=== PATIENT | male | born 1995 | race Caucasian/White ===

== ENCOUNTER 2018-06-27 18:23 | Emergency (ER) | payer BC ==
[2018-06-27 18:36] VITALS: BP 141/78
[2018-06-27] MEDS ORDERED: Ibuprofen TAB* 400 MG PO ONE (18:48)
--- NOTE | 2018-06-27 19:00 | UC ---
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 He states that he had been drinking last night was up on a ladder and missed the last step landing on his left foot. Since that point he has had discomfort in the anterior ankle without swelling. He is able to bear weight if he places his weight on his toes. He has more discomfort with normal gait. He denies any other injury and has not taken any medication for this. Only medical history is for inguinal hernia repair as a small child. - History of Current Complaint Chief Complaint: UCLowerExtremity Stated Complaint: L ANKLE INJURY Time Seen by Provider: 06/27/18 18:31 Hx Obtained From: Patient Pain Intensity: 8 - Allergies/Home Medications Allergies/Adverse Reactions: Allergies Allergy/AdvReac Type Severity Reaction Status Date / Time No Known Allergies Allergy Verified 06/27/18 18:37 Home Medications: Home Medications FLUoxetine* [Prozac*] 70 mg PO DAILY 06/27/18 [History Confirmed 06/27/18] PMH/Surg Hx/FS Hx/Imm Hx Previously Healthy: Yes - Surgical History Surgical History: Yes Surgery Procedure, Year, and Place: hernia sugery - Family History Known Family History: Negative: Diabetes, Blood Disorder - Social History Occupation: Student Alcohol Use: Weekly Substance Use Type: None Smoking Status (MU): Never Smoked Tobacco Review of Systems Constitutional: Negative Motor: Decreased ROM Neurovascular: Negative Musculoskeletal: Arthralgia, Decreased ROM All Other Systems Reviewed And Are Negative: Yes Physical Exam Triage Information Reviewed: Yes Appearance: Well-Appearing, No Pain Distress, Well-Nourished Vital Signs: Initial Vital Signs Temp 98.1 F 06/27/18 18:33 Pulse 90 06/27/18 18:33 Resp 15 06/27/18 18:33 BP 141/78 06/27/18 18:33 Pulse Ox 98 06/27/18 18:33 Neck: Positive: Supple Respiratory: Positive: Lungs clear Cardiovascular: Positive: RRR Musculoskeletal: Positive: Other: - Left ankle is tender anteriorly over the talus without any pain at the malleoli or anterior talofibular ligaments. Anterior and posterior drawer of the ankle is negative without laxity. No pain at the cuboid or fifth metatarsal. No proximal fibular tenderness. Antalgic gait, places weight on his forefoot Neurological: Positive: Alert Skin Exam: Normal Diagnostics - Radiology left ankle Xray Interpretation: No Acute Changes Radiology Interpretation Completed By: ED Physician - No osteochondral defect seen Lower Extremity Course/Dx - Course Course Of Treatment: Patient with fall one to 2 steps off ladder with direct axial load. No real tenderness at the calcaneus. Pain is more over the talus. X-rays look negative but no formal read is available. The patient was placed in a splint and on crutches and will be nonweightbearing to follow-up with orthopedist. Possibility of osteochondral injury/fracture. RICE plus NSAID. - Differential Dx/Diagnosis Differential Diagnosis/HQI/PQRI: Other - Calcaneal fracture, talar fracture, osteochondral defect, ankle sprain Provider Diagnoses: Left ankle pain. Left talus osteochondral injury Discharge - Sign-Out/Discharge Documenting (check all that apply): Patient Departure All imaging exams completed and their final reports reviewed: No - Discharge Plan Condition: Improved Disposition: HOME Prescriptions: Naproxen [Naproxen 500 mg tab] 500 mg PO BID PRN #10 tablet PRN Reason: Pain Patient Education Materials: Ankle Fracture (ED) Referrals: [facility] [Outside] Roque Rico MD [Medical Doctor] - Additional Instructions: Nonweightbearing. Ice the sore area. Call first thing in the morning to schedule appointment with orthopedic surgeon. Return if worse, new symptoms or other concerns. There is no definite fracture seen on her x-ray however there may be an injury to the cartilage surface of the ankle. - Billing Disposition and Condition Condition: IMPROVED Disposition: Home - Attestation Statements Document Initiated by Scribe: No
--- NOTE | 2018-06-27 19:28 | RAD ---
INDICATION: Medial ankle pain since falling off a ladder the previous night. COMPARISON: None. TECHNIQUE: 3 views of the left ankle were obtained. FINDINGS: The well corticated bones exhibit normal alignment. Joint spaces appear maintained. No fracture is seen. IMPRESSION: Normal ankle radiograph. If the patient's symptoms persist, follow-up imaging is recommended. R0
--- NOTE | 2018-06-28 09:14 | UC ---
Discharge - Sign-Out/Discharge Documenting (check all that apply): Post-Discharge Follow Up All imaging exams completed and their final reports reviewed: Yes - Discharge Plan Condition: Improved Disposition: HOME Prescriptions: Naproxen [Naproxen 500 mg tab] 500 mg PO BID PRN #10 tablet PRN Reason: Pain Patient Education Materials: Ankle Fracture (ED) Forms: *School Release Referrals: [facility] [Outside] Roque Rico MD [Medical Doctor] - Additional Instructions: Nonweightbearing. Ice the sore area. Call first thing in the morning to schedule appointment with orthopedic surgeon. Return if worse, new symptoms or other concerns. There is no definite fracture seen on her x-ray however there may be an injury to the cartilage surface of the ankle. - Billing Disposition and Condition Condition: IMPROVED Disposition: Home
== END 2018-06-27 19:55 | disposition home or self-care (01) ==
LOC: UCCORT 18:23
DX: M25.572 Pain in left ankle and joints of left foot (principal); S99.822A Other specified injuries of left foot, initial encounter; W11.XXXA Fall on and from ladder, initial encounter; Y93.89 Activity, other specified; Y92.9 Unspecified place or not applicable
CPT/HCPCS: 99203; A9270-GY; G0463

== ENCOUNTER 2018-12-05 08:23 | Emergency (ER) | payer BC ==
[2018-12-05 08:40] VITALS: BP 133/73
--- NOTE | 2018-12-05 09:18 | UC ---
Truncal Trauma HPI - HPI Summary HPI Summary: right posterior rib pain x 2 weeks injury playing hockey 2 week ago , was pushed against the wall and hit his right posterior ribs + pain with movement/ coughing and taking deep breaths no fever, no chills, no sob - History Of Current Complaint Chief Complaint: UCGeneralIllness Stated Complaint: RIGHT SIDED RIB INJURY Time Seen by Provider: 12/05/18 08:38 Hx Obtained From: Patient Onset/Duration: Sudden Onset, Lasting Weeks - 2, Still Present Onset Of Pain: Immediate Severity Initially: Severe Severity Currently: Severe Pain Intensity: 7 Pain Scale Used: 0-10 Numeric Mechanism Of Injury: Blunt Trauma Aggravating Factor(s): Movement, Deep Breathing, Cough Alleviating factor(s): Rest Associated Signs And Symptoms: Negative: SOB, Chest Pain, Cough, Hematuria, Abdominal Pain, Fever, Nausea, Vomiting - Allergies/Home Medications Allergies/Adverse Reactions: Allergies Allergy/AdvReac Type Severity Reaction Status Date / Time No Known Allergies Allergy Verified 12/05/18 08:33 Home Medications: Home Medications Ibuprofen TAB* [Advil TAB*] 200 mg PO Q6H PRN 12/05/18 [History Confirmed ] PMH/Surg Hx/FS Hx/Imm Hx Previously Healthy: Yes - Surgical History Surgical History: Yes Surgery Procedure, Year, and Place: hernia sugery - Family History Known Family History: Negative: Diabetes, Blood Disorder - Social History Alcohol Use: Weekly Substance Use Type: None Smoking Status (MU): Never Smoked Tobacco Review of Systems All Other Systems Reviewed And Are Negative: Yes Constitutional: Positive: Negative Skin: Positive: Negative Eyes: Positive: Negative ENT: Positive: Negative Respiratory: Positive: Negative Is Patient Immunocompromised?: No Physical Exam Triage Information Reviewed: Yes Appearance: Well-Appearing, No Pain Distress, Well-Nourished Vital Signs: Initial Vital Signs Temp 98.2 F 12/05/18 08:35 Pulse 69 12/05/18 08:35 Resp 16 12/05/18 08:35 BP 133/73 12/05/18 08:35 Pulse Ox 98 12/05/18 08:35 Eye Exam: Normal Eyes: Positive: Conjunctiva Clear ENT: Positive: Normal ENT inspection, Hearing grossly normal, Pharynx normal Neck: Positive: Supple, Nontender, No Lymphadenopathy Respiratory: Positive: Chest non-tender, Lungs clear, Normal breath sounds, No respiratory distress, Other: - tenderness right posterior lower ribs Cardiovascular: Positive: RRR, No Murmur, Pulses Normal Abdominal Exam: Normal Abdomen Description: Negative: CVA Tenderness (R), CVA Tenderness (L) Musculoskeletal Exam: Normal Musculoskeletal: Positive: Strength Intact, ROM Intact Diagnostics - Laboratory Diagnostic Studies Completed/Ordered: xray right ribs / chest : IMPRESSION: NONDISPLACED FRACTURE OF THE POSTERIOR ASPECT OF THE RIGHT 10TH RIB. NO APPRECIABLE. PNEUMOTHORAX. Truncal Trauma Course/Dx - Differential Dx/Diagnosis Provider Diagnosis: Fracture, rib Discharge - Sign-Out/Discharge Documenting (check all that apply): Patient Departure All imaging exams completed and their final reports reviewed: Yes - Discharge Plan Condition: Stable Disposition: HOME Patient Education Materials: Rib Fracture (ED) Referrals: No Primary Care Phys,NOPCP [Primary Care Provider] - 7 Days Additional Instructions: IMPRESSION: NONDISPLACED FRACTURE OF THE POSTERIOR ASPECT OF THE RIGHT 10TH RIB. NO APPRECIABLE PNEUMOTHORAX. - Billing Disposition and Condition Condition: STABLE Disposition: Home
== END 2018-12-05 09:11 | disposition home or self-care (01) ==
LOC: UCCORT 08:23
DX: S22.31XA Fracture of one rib, right side, initial encounter for closed fracture (principal); W22.01XA Walked into wall, initial encounter; Y92.9 Unspecified place or not applicable
CPT/HCPCS: 99211; G0463

== ENCOUNTER 2018-12-19 14:54 | Emergency (ER) | payer BC ==
[2018-12-19 15:51] VITALS: BP 127/71
--- NOTE | 2018-12-19 16:27 | UC ---
UC General HPI - HPI Summary HPI Summary: pt broke a R posterior 10th rib one month ago. he returns for clearance to resume sports/hockey. he denies any sob, cough, blood in sputum and pain in his chest. triage noted a 3/10 pain, pt notes that muscle and only with certain positions. - History of Current Complaint Chief Complaint: UCGeneralIllness Stated Complaint: RECHECK - RIBS Time Seen by Provider: 12/19/18 16:20 Hx Obtained From: Patient Pain Intensity: 3 Associated Signs & Symptoms: Negative: Cough, Chest Pain, Hemoptysis, SOB, Wheezing - Allergy/Home Medications Allergies/Adverse Reactions: Allergies Allergy/AdvReac Type Severity Reaction Status Date / Time No Known Allergies Allergy Verified 12/19/18 15:50 PMH/Surg Hx/FS Hx/Imm Hx Previously Healthy: Yes - Surgical History Surgical History: Yes Surgery Procedure, Year, and Place: hernia sugery - Family History Known Family History: Negative: Diabetes, Blood Disorder - Social History Alcohol Use: Weekly Substance Use Type: None Smoking Status (MU): Never Smoked Tobacco Review of Systems All Other Systems Reviewed And Are Negative: Yes Constitutional: Positive: Negative Skin: Positive: Negative Eyes: Positive: Negative ENT: Positive: Negative Respiratory: Positive: Negative Cardiovascular: Positive: Negative Gastrointestinal: Positive: Negative Genitourinary: Positive: Negative Motor: Positive: Negative Neurovascular: Positive: Negative Musculoskeletal: Positive: Negative Neurological: Positive: Negative Psychological: Positive: Negative Physical Exam Triage Information Reviewed: Yes Appearance: Well-Appearing Vital Signs: Initial Vital Signs Temp 97.7 F 12/19/18 15:49 Pulse 66 12/19/18 15:49 Resp 16 12/19/18 15:49 BP 127/71 12/19/18 15:49 Pulse Ox 97 12/19/18 15:49 Vital Signs Reviewed: Yes Eyes: Positive: Conjunctiva Clear ENT: Positive: Normal ENT inspection Neck: Positive: Supple, Nontender, No Lymphadenopathy Respiratory: Positive: Other: - Bare from waist up. chest/trunk has no gross deformity, swelling or bruising. palpation and compression of chest wall illicits no tenderness, instability or crepitations. Lungs are clear with good aeration throughout. Cardiovascular: Positive: RRR, No Murmur Abdomen Description: Positive: Nontender, No Organomegaly, Soft. Negative: Distended, Guarding Bowel Sounds: Positive: Present Musculoskeletal: Positive: ROM Intact Neurological: Positive: Alert Psychological: Positive: Age Appropriate Behavior Skin Exam: Normal Course/Dx - Course Course Of Treatment: exam is unremarkable and unable to cause pt any pain with palpation/compression of chest wall thus may resume sport. - Diagnoses Provider Diagnosis: Normal exam Discharge - Sign-Out/Discharge Documenting (check all that apply): Patient Departure All imaging exams completed and their final reports reviewed: No Studies - Discharge Plan Condition: Stable Disposition: HOME Patient Education Materials: Normal Exam (ED) Forms: *Gen. Provider Communication Referrals: BONITA RIVERA [[employer], APPLICATION, OTHER] - - Billing Disposition and Condition Condition: STABLE Disposition: Home - Attestation Statements Provider Attestation: Per institutional requirements, I have reviewed the chart, however, I was not consulted specifically or made aware of this patient by the midlevel provider. I did not personally evaluate, interact with , or disposition this patient.
== END 2018-12-19 16:34 | disposition home or self-care (01) ==
LOC: UCCORT 14:54
DX: Z02.5 Encounter for examination for participation in sport (principal)
CPT/HCPCS: 99211; G0463